=== PATIENT | male | born 1955 ===

== ENCOUNTER 2016-09-22 10:45 | Observation (INO) | payer SELFPAY ==
[2016-09-22 10:54] VITALS: BMI 27.2
--- NOTE | 2016-09-22 12:29 | ED PDOC ---
HPI: General Adult Time Seen by Provider: 09/22/16 12:13 Chief Complaint (Nursing): Abnormal Skin Integrity Chief Complaint (Provider): Rash History Per: Patient History/Exam Limitations: no limitations Onset/Duration Of Symptoms: Days (x4) Current Symptoms Are (Timing): Still Present Additional Complaint(s): Carlos James is a 61 year old male that presents to the ED with a chief complaint of a rash present on his stomach and back that he has had for the past four days. Patient reports associated "smelly" hematuria for the past six days, as well as urine that on occasion is almost "the color of coffee." Patient states that he has a history of hypertension for which he typically takes Simvastatin, but that he has not taken his medication for the past three days. He denies introducing any new foods into his diet. Past Medical History Reviewed: Historical Data, Nursing Documentation, Vital Signs Vital Signs: Last Vital Signs Temp 98.2 F 09/22/16 19:38 Pulse 72 09/22/16 19:38 Resp 18 09/22/16 19:38 BP 128/78 09/22/16 19:38 Pulse Ox 100 09/22/16 19:38 - Medical History PMH: HTN - Family History Family History: States: Unknown Family Hx - Allergies Allergies/Adverse Reactions: Allergies Allergy/AdvReac Type Severity Reaction Status Date / Time No Known Allergies Allergy Verified 09/22/16 12:16 Review of Systems Genitourinary Male: Positive for: Hematuria (x6 days) Skin: Positive for: Rash (present on stomach and back, x4 days) Physical Exam - Reviewed Nursing Documentation Reviewed: Yes Vital Signs Reviewed: Yes - Physical Exam Appears: Positive for: Non-toxic, No Acute Distress Head Exam: Positive for: ATRAUMATIC, NORMOCEPHALIC Skin: Positive for: Warm, Rash (diffuse, erythematous, blanching rash present on stomach and back, various shapes, defined border) Eye Exam: Positive for: Normal appearance, EOMI, PERRL Cardiovascular/Chest: Positive for: Regular Rate, Rhythm. Negative for: Murmur Respiratory: Positive for: Normal Breath Sounds. Negative for: Wheezing Gastrointestinal/Abdominal: Positive for: Soft, Tenderness (diffuse mild abdominal tenderness) Back: Positive for: L CVA Tenderness, R CVA Tenderness Neurologic/Psych: Positive for: Alert, Oriented - Laboratory Results Result Diagrams: 09/22/16 12:50 09/22/16 12:50 - ECG O2 Sat by Pulse Oximetry: 97 (RA) Pulse Ox Interpretation: Normal Medical Decision Making Medical Decision Making: Impression: Rash/Hematuria Plan: * Iohexol 50 ml PO * Sodium Chloride 500 mL at 500 mLs/hr * Urine culture * Reevaluation US Abdomen IMPRESSION: Unremarkable scan CT Scan Abdomen/Pelvis IMPRESSION: Question early cirrhosis. Colonic diverticulosis. Bilateral renal cysts. Pt advised to follow up with specialist. Stable for discharge home. Scribe Attestation: Documented by Eileen Burris, acting as a scribe for Alysa Macedo PA-C. Provider Scribe Attestation: All medical record entries made by the Scribe were at my direction and personally dictated by me. I have reviewed the chart and agree that the record accurately reflects my personal performance of the history, physical exam, medical decision making, and the department course for this patient. I have also personally directed, reviewed, and agree with the discharge instructions and disposition. Disposition - Clinical Impression Clinical Impression: Hematuria, Liver cirrhosis Counseled Patient/Family Regarding: Diagnosis, Need For Followup - Disposition Disposition: Routine/Home Disposition Time: 19:05 Condition: GOOD - POA Present On Arrival: None
[2016-09-22 12:59] LABS: RBC URINE 3 /hpf (0-3); URINE BACTERIA RARE (<OCC); URINE BILIRUBIN NEGATIVE (NEGATIVE); URINE BLOOD SMALL (NEGATIVE); URINE COLOR YELLOW (YELLOW); URINE GLUCOSE (UA) NEG (Normal); URINE KETONE NEGATIVE (NEGATIVE); URINE LEUKOCYTE ESTERASE NEG Leu/uL (Negative); URINE PROTEIN NEGATIVE (NEGATIVE); URINE UROBILINOGEN 0.2-1.0 mg/dL (0.2-1.0); WBC URINE 3 /hpf (0-5)
[2016-09-22 13:03] LABS: BASO # 0.1 K/uL (0.0-0.2); BASO % 0.8 % (0.0-2.0); EOS # 0.1 K/uL (0.0-0.7); EOS % 1.2 % (0.0-4.0); LYMPH # 1.9 K/uL (1.0-4.3); LYMPH % 21.8 % (20.0-40.0); MEAN CELL VOLUME 92.1 fl (80.0-94.0); MEAN CORPUSCULAR HEMOGLOBIN 30.7 pg (27.0-31.0); MEAN CORPUSCULAR HGB CONC 33.4 g/dL (33.0-37.0); MEAN PLATELET VOLUME 8.5 fl (7.2-11.7); MONO # 0.4 K/uL (0.0-0.8); MONO % 5.2 % (0.0-10.0); NEUT # 6.1 K/uL (1.8-7.0); NRBC % 0.1 % (0.0-0.0); WHITE BLOOD COUNT 8.6 K/uL (4.8-10.8)
[2016-09-22 13:10] LABS: ALKALINE PHOSPHATASE 538 U/L (38-126); ALT/SGPT 163 U/L (21-72); AST/SGOT 84 U/L (17-59); BILIRUBIN,TOTAL 0.6 mg/dl (0.2-1.3); BLOOD UREA NITROGEN 14 mg/dl (9-20); CALCIUM 9.4 mg/dL (8.4-10.2); CARBON DIOXIDE 25 mmol/L (22-30); CHLORIDE 104 mmol/L (98-107); GFR AFRICAN-AMERICAN > 60; GLUCOSE,RANDOM 105 mg/dL (75-110); POTASSIUM 4.4 MMOL/L (3.6-5.0); SODIUM 143 mmol/l (132-148)
[2016-09-22] MEDS ORDERED: Iohexol 240 (50 ml) PO ONE (14:05)
[2016-09-22] MEDS ORDERED: Iohexol 240 (50 ml) ONE (15:19)
[2016-09-22] MEDS ORDERED: Sodium Chloride 0.9% 50 ML IV ONE (17:25)
[2016-09-22] MEDS ORDERED: Iohexol 300 50 ML ONE (17:25)
--- NOTE | 2016-09-22 18:13 | CT ---
PROCEDURE: CT Abdomen and Pelvis with contrast HISTORY: abdominal pain, abnormal LFTs COMPARISON: None. TECHNIQUE: Contrast dose: 100 cc of Omnipaque 300 Radiation dose: Total exam DLP = 590 mGy-cm. This CT exam was performed using one or more of the following dose reduction techniques: Automated exposure control, adjustment of the mA and/or kV according to patient size, and/or use of iterative reconstruction technique. FINDINGS: LOWER THORAX: Bibasilar fibrosis. Small hiatal hernia. LIVER: Mild heterogeneity of the enhancement pattern of the liver and questionable minimal nodularity of the contour which could indicate early cirrhosis; correlate with liver function studies.. No gross lesion or ductal dilatation. GALLBLADDER AND BILE DUCTS: Unremarkable. PANCREAS: Unremarkable. No gross lesion or ductal dilatation. SPLEEN: Unremarkable. ADRENALS: Unremarkable. No mass. KIDNEYS AND URETERS: Bilateral simple renal cysts the largest measuring roughly 2 centimeters in the left mid kidney.. No hydronephrosis. No solid mass. VASCULATURE: Unremarkable. No aortic aneurysm. BOWEL: Colonic diverticulosis.. No obstruction. No gross mural thickening. APPENDIX: Normal appendix. PERITONEUM: Unremarkable. No free fluid. No free air. LYMPH NODES: Unremarkable. No enlarged lymph nodes. BLADDER: Unremarkable. REPRODUCTIVE: Unremarkable. BONES: No acute fracture. OTHER FINDINGS: None. IMPRESSION: Question early cirrhosis. Colonic diverticulosis. Bilateral renal cysts.
--- NOTE | 2016-09-22 18:19 | US ---
HISTORY: epigastric pain, abnormal LFTs COMPARISON: None. TECHNIQUE: Sonographic evaluation of the right upper quadrant of the abdomen. FINDINGS: LIVER: Measures cm in length. Normal echogenicity of the liver parenchyma. No mass. No intrahepatic bile duct dilatation. GALLBLADDER: Unremarkable. No gallstones. COMMON BILE DUCT: Measures mm. No stones. No dilatation. PANCREAS: Unremarkable as visualized. No mass. No ductal dilatation. RIGHT KIDNEY: Measures cm in length. Normal echogenicity. No calculus, mass, or hydronephrosis. AORTA: No aneurysmal dilatation. IVC: Unremarkable. OTHER FINDINGS: None . IMPRESSION: Unremarkable scan
[2016-09-22] MEDS ORDERED: Sodium Chloride 0.9% 500 ML IV SCH (19:30)
[2016-09-22 19:39] VITALS: BP 128/78; PULSE 72; RESP 18; TEMP 98.2
[2016-09-22 19:42] VITALS: O2SAT 97
== END 2016-09-22 19:05 | disposition home or self-care (01) ==
LOC: H.ER 10:45 → H.EROBSV 13:40
PROVIDERS: ADMIT Emergency Medicine; ATTEND Emergency Medicine
DX: I10 Essential (primary) hypertension (principal); R31.9 Hematuria, unspecified; K74.60 Unspecified cirrhosis of liver; R21 Rash and other nonspecific skin eruption
CPT/HCPCS: 74177; 76705; 80053; 81003; 85025; 85651; 87086; 99282; G0378; Q9966; Q9967